=== PATIENT | male | born 1965 | race Caucasian/White ===

== ENCOUNTER 2017-12-18 08:33 | Inpatient (IN) | payer OTHER ==
[~2017-12-18] VITALS: Ht 180.3 cm; Wt 91.8 kg
[~2017-12-18 08:33] MED LIST: ALLEGRA180 MG PO
[2017-12-18] MEDS ORDERED: AZITHROMYCIN500 M1 PO (11:39)
[2017-12-18 11:49] VITALS: BP 117/71
[2017-12-18 13:40] LABS: HEMATOCRIT 38.4 % (38.0-50.0); MCH 28.1 PG (29.0-34.0); MCHC 33.9 G/DL (30.0-36.0); MCV 82.9 FL (86-99); PLATELET COUNT 202 K/uL (156-360); RBC DIS.WIDTH-SD 35.8 % (39-53); RED BLOOD COUNT 4.63 M/uL (4.00-5.50); WHITE BLOOD COUNT 10.7 K/uL (4.1-10.2)
[2017-12-18 15:10] VITALS: BP 116/68
[2017-12-18 23:16] VITALS: BP 98/55
[2017-12-19 03:33] VITALS: BP 100/57
[2017-12-19 04:53] LABS: HEMATOCRIT 36.1 % (38.0-50.0); HEMOGLOBIN 12.5 G/DL (12.5-16.6); MCH 29.1 PG (29.0-34.0); MCHC 34.6 G/DL (30.0-36.0); MCV 84.1 FL (86-99); PLATELET COUNT 195 K/uL (156-360); RBC DIS.WIDTH-CV 12.1 % (11.8-14.6); RBC DIS.WIDTH-SD 36.4 % (39-53); RED BLOOD COUNT 4.29 M/uL (4.00-5.50); WHITE BLOOD COUNT 8.8 K/uL (4.1-10.2)
[2017-12-19 05:05] LABS: ALBUMIN 3.6 g/dL (3.2-4.8); CHLORIDE 106 mEq/L (99-109); POTASSIUM 3.7 mEq/L (3.7-5.4); SODIUM 138 mEq/L (136-147)
[2017-12-19 05:06] LABS: ALBUMIN 3.6 g/dL (3.2-4.8)
[2017-12-19 05:07] LABS: CHLORIDE 105 mEq/L (99-109); GLUCOSE 240 mg/dL (70-99); POTASSIUM 3.6 mEq/L (3.7-5.4); SODIUM 137 mEq/L (136-147); TOTAL PROTEIN 5.6 g/dL (6.4-8.3)
[2017-12-19 05:09] LABS: GLUCOSE 237 mg/dL (70-99); TOTAL BILIRUBIN 0.6 mg/dL (0.0-1.0)
[2017-12-19 05:10] LABS: ALKALINE PHOSPHATASE 114 IU/L (3-129)
[2017-12-19 05:11] LABS: GFR ESTIMATE (CALCULATED) > 59 mL/min/ (58.99-99999)
[2017-12-19 05:12] LABS: AST (GOT) 13 IU/L (2-34); CREATININE 0.9 mg/dL (0.6-1.3); GFR ESTIMATE (CALCULATED) > 59 mL/min/ (58.99-99999); INTER. NORMALIZED RATIO 1.1; PHOSPHORUS 2.9 mg/dL (2.5-4.9); UREA NITROGEN (BUN) 13 mg/dL (9-23)
[2017-12-19 05:13] LABS: UREA NITROGEN (BUN) 12 mg/dL (9-23)
[2017-12-19 05:14] LABS: ALT (GPT) 17 IU/L (3-49)
[2017-12-19 07:27] VITALS: BP 131/73
[2017-12-19 10:20] LABS: HEMOGLOBIN A1c (GLYCOHEMOGLOB) 13.5 % (Below 5.7)
[2017-12-19 10:31] LABS: HEMATOCRIT 34.9 % (38.0-50.0); HEMOGLOBIN 11.9 G/DL (12.5-16.6); MCV 84.3 FL (86-99)
[2017-12-19 11:18] VITALS: BP 117/70
[2017-12-19 11:45] LABS: STOOL OCCULT BLD 1ST SPECIMEN POSITIVE
[2017-12-19 15:30] VITALS: BP 122/63
[2017-12-19 16:56] LABS: HEMATOCRIT 33.7 % (38.0-50.0); HEMOGLOBIN 11.3 G/DL (12.5-16.6); MCV 84.9 FL (86-99)
[2017-12-19 19:20] VITALS: BP 127/77
[2017-12-19 22:58] VITALS: BP 111/56
[2017-12-20 02:49] VITALS: BP 105/59
[2017-12-20 07:05] LABS: BASOPHIL (%) 0.3 % (0-1); EOSINOPHIL (%) 2.5 % (0-5); EOSINOPHIL COUNT 0.2 K/uL (0-0.3); HEMOGLOBIN 10.9 G/DL (12.5-16.6); IMMATURE GRANULOCYTE (%) 0.3 % (0.0-0.7); LYMPHOCYTE (%) 26.1 % (15-42); LYMPHOCYTE COUNT 1.6 K/uL (1.0-2.8); MCV 84.8 FL (86-99); MONOCYTE COUNT 0.5 K/uL (0-0.8); NEUTROPHIL (%) 62.8 % (45-76); NEUTROPHIL COUNT 3.8 K/uL (1.8-6.4); PLATELET COUNT 148 K/uL (156-360); RBC DIS.WIDTH-CV 12.3 % (11.8-14.6); RBC DIS.WIDTH-SD 37.5 % (39-53); RED BLOOD COUNT 3.89 M/uL (4.00-5.50); WHITE BLOOD COUNT 6.1 K/uL (4.1-10.2)
[2017-12-20 07:33] LABS: CHLORIDE 107 MEQ/L (99-109); CREATININE 0.9 MG/DL (0.6-1.3); GFR ESTIMATE (CALCULATED) > 59 mL/min/ (58.99-99999); GLUCOSE 252 mg/dL (70-99); POTASSIUM 3.7 MEQ/L (3.7-5.4); SODIUM 139 MEQ/L (136-147); UREA NITROGEN (BUN) 6 mg/dL (9-23)
[2017-12-20 07:38] VITALS: BP 109/60
[2017-12-20 12:13] VITALS: BP 114/70
[2017-12-20 15:30] VITALS: BP 131/70
[2017-12-20 18:48] LABS: HEMATOCRIT 31.2 % (38.0-50.0); HEMOGLOBIN 10.6 G/DL (12.5-16.6); MCV 85.5 FL (86-99); PLATELET COUNT 153 K/uL (156-360); RBC DIS.WIDTH-CV 12.2 % (11.8-14.6); RBC DIS.WIDTH-SD 37.8 % (39-53); RED BLOOD COUNT 3.65 M/uL (4.00-5.50); WHITE BLOOD COUNT 11.1 K/uL (4.1-10.2)
[2017-12-20 18:50] VITALS: BP 138/79
[2017-12-20 19:13] LABS: CHLORIDE 109 MEQ/L (99-109); POTASSIUM 4.4 MEQ/L (3.7-5.4); SODIUM 139 MEQ/L (136-147)
[2017-12-20 19:19] LABS: CREATININE 0.7 MG/DL (0.6-1.3); GFR ESTIMATE (CALCULATED) > 59 mL/min/ (58.99-99999); GLUCOSE 273 mg/dL (70-99); UREA NITROGEN (BUN) 6 mg/dL (9-23)
[2017-12-20 22:43] VITALS: BP 120/56
[2017-12-21] VITALS (8 sets, daily range): BP systolic 81–130; BP diastolic 52–71
[2017-12-21 06:37] LABS: HEMATOCRIT 27.8 % (38.0-50.0); HEMOGLOBIN 9.3 G/DL (12.5-16.6); MCH 28.6 PG (29.0-34.0); MCHC 33.5 G/DL (30.0-36.0); MCV 85.5 FL (86-99); PLATELET COUNT 130 K/uL (156-360); RBC DIS.WIDTH-CV 12.4 % (11.8-14.6); RBC DIS.WIDTH-SD 38.5 % (39-53); RED BLOOD COUNT 3.25 M/uL (4.00-5.50); WHITE BLOOD COUNT 7.5 K/uL (4.1-10.2)
[2017-12-21 07:00] LABS: CHLORIDE 106 MEQ/L (99-109); CREATININE 0.8 MG/DL (0.6-1.3); GFR ESTIMATE (CALCULATED) > 59 mL/min/ (58.99-99999); GLUCOSE 306 mg/dL (70-99); POTASSIUM 4.1 MEQ/L (3.7-5.4); SODIUM 135 MEQ/L (136-147); UREA NITROGEN (BUN) 5 mg/dL (9-23)
[2017-12-21 19:11] LABS: HEMATOCRIT 28.2 % (38.0-50.0); HEMOGLOBIN 9.3 G/DL (12.5-16.6); MCH 28.5 PG (29.0-34.0); MCV 86.5 FL (86-99); PLATELET COUNT 118 K/uL (156-360); RBC DIS.WIDTH-CV 12.4 % (11.8-14.6); RBC DIS.WIDTH-SD 38.5 % (39-53); RED BLOOD COUNT 3.26 M/uL (4.00-5.50); WHITE BLOOD COUNT 7.5 K/uL (4.1-10.2)
[2017-12-22] VITALS (7 sets, daily range): BP systolic 111–148; BP diastolic 50–75
[2017-12-22 06:22] LABS: HEMATOCRIT 25.7 % (38.0-50.0); HEMOGLOBIN 8.4 G/DL (12.5-16.6); MCHC 32.7 G/DL (30.0-36.0); MCV 85.7 FL (86-99); PLATELET COUNT 134 K/uL (156-360); RBC DIS.WIDTH-CV 12.4 % (11.8-14.6); RBC DIS.WIDTH-SD 38.4 % (39-53); WHITE BLOOD COUNT 6.7 K/uL (4.1-10.2)
[2017-12-22 06:56] LABS: CHLORIDE 110 MEQ/L (99-109); CREATININE 0.8 MG/DL (0.6-1.3); GFR ESTIMATE (CALCULATED) > 59 mL/min/ (58.99-99999); GLUCOSE 239 mg/dL (70-99); POTASSIUM 4.2 MEQ/L (3.7-5.4); SODIUM 141 MEQ/L (136-147); UREA NITROGEN (BUN) 4 mg/dL (9-23)
[2017-12-23 03:04] VITALS: BP 112/65
[2017-12-23 07:06] VITALS: BP 128/71
[2017-12-23 10:40] VITALS: BP 130/87
[2017-12-23 14:18] VITALS: BP 125/65
[2017-12-23 15:31] LABS: BASOPHIL (%) 0.3 % (0-1); EOSINOPHIL (%) 4.2 % (0-5); EOSINOPHIL COUNT 0.3 K/uL (0-0.3); HEMATOCRIT 29.7 % (38.0-50.0); HEMOGLOBIN 9.6 G/DL (12.5-16.6); IMMATURE GRANULOCYTE (%) 0.4 % (0.0-0.7); LYMPHOCYTE (%) 23.4 % (15-42); LYMPHOCYTE COUNT 1.8 K/uL (1.0-2.8); MCH 27.7 PG (29.0-34.0); MCHC 32.3 G/DL (30.0-36.0); MCV 85.8 FL (86-99); MONOCYTE (%) 8.1 % (3-12); MONOCYTE COUNT 0.6 K/uL (0-0.8); NEUTROPHIL (%) 63.6 % (45-76); NEUTROPHIL COUNT 4.8 K/uL (1.8-6.4); RBC DIS.WIDTH-CV 12.6 % (11.8-14.6); RBC DIS.WIDTH-SD 38.8 % (39-53); RED BLOOD COUNT 3.46 M/uL (4.00-5.50); WHITE BLOOD COUNT 7.5 K/uL (4.1-10.2)
[2017-12-23 16:13] LABS: PLATELET COUNT 212 K/uL (156-360)
[2017-12-23 23:38] VITALS: BP 104/61
[2017-12-24 06:11] LABS: BASOPHIL (%) 0.2 % (0-1); EOSINOPHIL COUNT 0.2 K/uL (0-0.3); HEMATOCRIT 26.4 % (38.0-50.0); HEMOGLOBIN 8.7 G/DL (12.5-16.6); IMMATURE GRANULOCYTE (%) 0.4 % (0.0-0.7); LYMPHOCYTE (%) 24.7 % (15-42); LYMPHOCYTE COUNT 1.2 K/uL (1.0-2.8); MCH 28.3 PG (29.0-34.0); MONOCYTE (%) 9.6 % (3-12); MONOCYTE COUNT 0.5 K/uL (0-0.8); NEUTROPHIL (%) 60.1 % (45-76); NEUTROPHIL COUNT 2.9 K/uL (1.8-6.4); PLATELET COUNT 173 K/uL (156-360); RBC DIS.WIDTH-CV 12.6 % (11.8-14.6); RBC DIS.WIDTH-SD 39.2 % (39-53); RED BLOOD COUNT 3.07 M/uL (4.00-5.50); WHITE BLOOD COUNT 4.8 K/uL (4.1-10.2)
[2017-12-24 07:25] VITALS: BP 127/75
[2017-12-24] MEDS ORDERED: TRAMADOL HCL50 MG PO (10:17)
[2017-12-24] MEDS ORDERED: GLIPIZIDE5 MG PO (11:37)
[2017-12-24] MEDS ORDERED: METFORMIN HCL500 MG PO (11:37)
[2017-12-24] MEDS ORDERED: LEVEMIR FL100 UNIT/1 SC (11:37)
== END 2017-12-24 13:45 | disposition home or self-care (01) | DRG 329 ==
LOC: 5WEST 08:33 → ENRESERV 08:35 → 5EAST 08:58 → ENRESERV 08:58 → 5EAST 11:22 → ENPENDDIS 12-24 → 5EAST 12-24 13:45
PROVIDERS: Internal Medicine; Internal Medicine Gastroenterology; Physician Assistant; Surgery
DX: C18.3 Malignant neoplasm of hepatic flexure (principal); K57.31 Diverticulosis of large intestine without perforation or abscess with bleeding; Z80.0 Family history of malignant neoplasm of digestive organs; J20.9 Acute bronchitis, unspecified; T38.0X5A Adverse effect of glucocorticoids and synthetic analogues, initial encounter; E11.65 Type 2 diabetes mellitus with hyperglycemia; K63.5 Polyp of colon; Z87.891 Personal history of nicotine dependence; Z85.828 Personal history of other malignant neoplasm of skin; E66.9 Obesity, unspecified; Z68.28 Body mass index [BMI] 28.0-28.9, adult; D64.9 Anemia, unspecified; D69.6 Thrombocytopenia, unspecified
CPT/HCPCS: 74177; 80048; 80048 91; 80053; 80069; 82105 90; 82272; 82378; 82948; 83036; 85014; 85018; 85025; 85027; 85610; 85730; 86850; 86900; 86901; 88305; 88309; 94799; C9113; G0378; J0131; J1170; J1650; J1815; J1885; J2001; J2250; J2405; J2795; J3475; J7030; S0074

== ENCOUNTER 2018-03-11 08:39 | Day surgery (SDC) | payer OTHER ==
[~2018-03-11] VITALS: Ht 180.3 cm; Wt 93.0 kg
[~2018-03-11 08:39] MED LIST changes: +ALLEGRA ALLERG180 MG PO; -ALLEGRA180 MG PO; +AZITHROMYCIN500 M1 PO; +FEOSOL325 MG PO; +GLIPIZIDE5 MG PO; +GLUCOPHAGE500 MG PO; +GLUCOTROL5 MG PO; +LANTUS 3 M100 UNITS1 SC; +LEVEMIR FL100 UNIT/1 SC; +METFORMIN HCL500 MG PO; +PRILOSEC OTC20 MG PO; +TRAMADOL HCL50 MG PO; +TYLENOL EXTRA500 MG PO
[2018-03-11 09:29] VITALS: BP 133/75
[2018-03-11] MEDS ORDERED: NORCO 5/3251 TABLET PO (11:36)
[2018-03-11 13:06] VITALS: BP 126/85
[2018-03-11 13:37] VITALS: BP 112/81
== END 2018-03-11 13:50 | disposition home or self-care (01) ==
LOC: SDC 08:39
PROVIDERS: Surgery
PROC: 05HM33Z Insertion of Infusion Device into Right Internal Jugular Vein, Percutaneous Approach (ICD-10-PCS; principal; 2018-03-11)
PROC: 0JH60WZ Insertion of Totally Implantable Vascular Access Device into Chest Subcutaneous Tissue and Fascia, Open Approach (ICD-10-PCS; principal; 2018-03-11)
PROC: B5131ZA Fluoroscopy of Right Jugular Veins using Low Osmolar Contrast, Guidance (ICD-10-PCS; principal; 2018-03-11)
DX: Z45.2 Encounter for adjustment and management of vascular access device (principal); I87.8 Other specified disorders of veins; C18.3 Malignant neoplasm of hepatic flexure; K21.9 Gastro-esophageal reflux disease without esophagitis; E11.9 Type 2 diabetes mellitus without complications; Z87.891 Personal history of nicotine dependence; Z88.0 Allergy status to penicillin; Z79.4 Long term (current) use of insulin
CPT/HCPCS: 71045; 82948; C1751; C1894; J0690; J1170; J2250; J2405; J3010